=== PATIENT | male | born 2000 | race Caucasian/White ===

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

== ENCOUNTER 2020-12-09 13:50 | Emergency (ER) | payer OTHER ==
[~2020-12-09] VITALS: Ht 175.3 cm; Wt 110.0 kg
[2020-12-09] MEDS ORDERED: IBUPROFEN 600MG TABLET PO STA (18:34)
[2020-12-09] MEDS ORDERED: CYCL5TAB PO (19:24)
[2020-12-09] MEDS ORDERED: IBUP-2029 PO (19:24)
[2020-12-09 19:52] VITALS: BP 125/84
== END 2020-12-09 20:45 | disposition home or self-care (01) ==
LOC: ER 13:50
DX: S39.012A Strain of muscle, fascia and tendon of lower back, initial encounter (principal); M79.18 Myalgia, other site; V49.49XA Driver injured in collision with other motor vehicles in traffic accident, initial encounter; Y93.89 Activity, other specified; Y92.89 Other specified places as the place of occurrence of the external cause; Y99.8 Other external cause status
CPT/HCPCS: 72100; 99283

== ENCOUNTER 2021-08-13 03:30 | Emergency (ER) | payer OTHER ==
[~2021-08-13] VITALS: Ht 177.8 cm; Wt 114.0 kg
[~2021-08-13 03:30] MED LIST: CYCL5TAB PO; IBUP-2029 PO
[2021-08-13 03:51] VITALS: BP 139/92
[2021-08-13] MEDS ORDERED: FLUORESCEIN SODIUM 1MG/STRIP BOTHEYE ONE (04:30)
[2021-08-13] MEDS ORDERED: TETRACAINE 0.5% OPHTH DROPS 4ML BOTHEYE ONE (04:30)
[2021-08-13] MEDS ORDERED: OLOP5DRO14 EACHEYE (05:22)
== END 2021-08-13 06:15 | disposition home or self-care (01) ==
LOC: ER 03:30
DX: H57.13 Ocular pain, bilateral (principal); Z98.890 Other specified postprocedural states
CPT/HCPCS: 99283